=== PATIENT | male | born 1935 | race African-American/Black ===

== ENCOUNTER 2017-03-04 17:31 | Emergency (ER) | payer MEDICARE ==
--- NOTE | 2017-03-04 17:56 | RAD ---
CHEST ONE VIEW: 03/04/17 HISTORY: 82-year-old male with dizziness for several months. The apices are not completely included. Atherosclerosis of the aorta with ectasia. No confluent pneu monia, overt edema, or pleural effusion. Postsurgical clips in the right upper quadrant and epigastric region. IMPRESSION: No significant acute intrathoracic disease. Apices are not completely included. POS: [facility]
[2017-03-04 18:30] LABS: #Eosinphils 0.1 thou/uL (0.0-0.7); #Lymphocytes 1.5 thou/uL (1.20-3.40); #Monocytes 0.5 thou/uL (0.11-0.59); #Neutrophils 2.3 thou/uL (1.40-6.50); %Basophils 0.6 % (0.0-1.0); %Eosinophils 1.6 % (0.0-10.0); %Lymphocytes 34.9 % (21.0-51.0); %Monocytes 10.7 % (0.0-10.0); Hematocrit 42.6 % (42.0-52.0); Mean Platelet Volume 7.1 fL (7.4-10.4); Red Blood Cell (RBC) Count 4.46 mill/uL (4.70-6.10); White Blood Cell (WBC) Count 4.3 thou/uL (4.8-10.8)
[2017-03-04 18:53] LABS: ALT (SGPT) 23 U/L (8-55); AST (SGOT) 30 U/L (5-34); Alkaline Phosphatase 72 U/L (40-150); Anion Gap 12 mmol/L (10-20); BUN (Urea Nitrogen) 21 mg/dL (8.4-25.7); Bilirubin, Total 0.3 mg/dL (0.2-1.2); CK (CPK) 287 U/L (30-200); Calc. Creatinine Clearance 0 mL/min (70-130); Calcium 9.1 mg/dL (7.8-10.44); Carbon Dioxide 25 mmol/L (23-31); Chloride 101 mmol/L (98-107); Estimated GFR-MDRD 45; Globulin 4.4 g/dL (2.4-3.5); Lipase 25 U/L (8-78); Protein, Total 8.1 g/dL (5.8-8.1)
[2017-03-04 18:59] LABS: Troponin I Less than 0.010 ng/mL (< 0.028)
== END 2017-03-04 20:07 | disposition home or self-care (01) ==
LOC: ERS 17:31
DX: H81.13 Benign paroxysmal vertigo, bilateral (principal); E78.5 Hyperlipidemia, unspecified; I10 Essential (primary) hypertension; F41.9 Anxiety disorder, unspecified; Z79.82 Long term (current) use of aspirin; Z79.899 Other long term (current) drug therapy
CPT/HCPCS: 71010; 80053; 82553; 83690; 84484; 85025; 93005; 94760